=== PATIENT | male | born 1965 | race Caucasian/White ===

== ENCOUNTER → 2016-11-23 | Day surgery (SDC) | payer BC ==
[~2016-11-23] MED LIST: NORCO 7.5-3251 EACH PO; VENTOLIN HFA 66.7 GM INH; VENTOLIN/PROVE0.5 ML INH
== END | disposition home or self-care (01) ==
LOC: OR 06:45
PROVIDERS: Surgery
PROC: 0HBU0ZX Excision of Left Breast, Open Approach, Diagnostic (ICD-10-PCS; 2016-11-23)
PROC: 0JB60ZZ Excision of Chest Subcutaneous Tissue and Fascia, Open Approach (ICD-10-PCS; 2016-11-23)
PROC: 0WBF0ZX Excision of Abdominal Wall, Open Approach, Diagnostic (ICD-10-PCS; principal; 2016-11-23 12:15)
DX: D17.1 Benign lipomatous neoplasm of skin and subcutaneous tissue of trunk (principal); D17.39 Benign lipomatous neoplasm of skin and subcutaneous tissue of other sites; F41.9 Anxiety disorder, unspecified; J44.9 Chronic obstructive pulmonary disease, unspecified; N40.0 Benign prostatic hyperplasia without lower urinary tract symptoms; J45.909 Unspecified asthma, uncomplicated; F32.9 Major depressive disorder, single episode, unspecified; F17.210 Nicotine dependence, cigarettes, uncomplicated; Z79.899 Other long term (current) drug therapy; Z82.61 Family history of arthritis; Z82.3 Family history of stroke; Z80.2 Family history of malignant neoplasm of other respiratory and intrathoracic organs; Z82.5 Family history of asthma and other chronic lower respiratory diseases; Z83.3 Family history of diabetes mellitus; Z81.8 Family history of other mental and behavioral disorders; Z80.1 Family history of malignant neoplasm of trachea, bronchus and lung; Z82.49 Family history of ischemic heart disease and other diseases of the circulatory system
CPT/HCPCS: J0690; J1100; J2250; J2405; J2765; J3010; J7120

== ENCOUNTER 2020-09-29 23:28 | Emergency (ER) | payer OTHER ==
[~2020-09-29 23:28] MED LIST changes: +MORPHINE SULFAT15 M1 PO
[2020-09-30] MEDS ORDERED: LODINE CAP 300300 MG PO (02:16)
[2020-09-30] MEDS ORDERED: NORFLEX 100 MG100 MG PO (02:16)
== END 2020-09-30 02:40 | disposition home or self-care (01) ==
LOC: ER1 23:28
DX: S20.211A Contusion of right front wall of thorax, initial encounter (principal); F17.210 Nicotine dependence, cigarettes, uncomplicated; W01.0XXA Fall on same level from slipping, tripping and stumbling without subsequent striking against object, initial encounter
CPT/HCPCS: 71045; 96372; 99283; J1885; J2060

== ENCOUNTER → 2020-10-02 | Outpatient (CLI) | payer OTHER ==
[~2020-10-02] MED LIST changes: +LODINE CAP 300300 MG PO; +NORFLEX 100 MG100 MG PO
[2020-10-02 11:53] LABS: HEMOGLOBIN 15.9 gm/dl (14.0-17.5); RED BLOOD COUNT 4.65 M/UL (4.20-5.50); WHITE BLOOD COUNT 7.6 K/UL (4.5-11.0)
[2020-10-02 12:16] LABS: BUN/CREATININE RATIO 14 (0-10)
== END ==
LOC: LAB 10:53
PROVIDERS: Emergency Medicine
DX: R22.2 Localized swelling, mass and lump, trunk (principal)
CPT/HCPCS: 36415; 80053; 84146; 85025

== ENCOUNTER → 2020-10-07 | Outpatient (CLI) | payer OTHER | LOC: US 14:44 | DX: F10.288 Alcohol dependence with other alcohol-induced disorder (principal); R22.2 Localized swelling, mass and lump, trunk; N62 Hypertrophy of breast | CPT/HCPCS: 76641-LT; 76641-RT ==